=== PATIENT | female | born 1995 | race African-American/Black ===

== ENCOUNTER 2017-05-16 12:26 | Emergency (ER) | payer BC, SELFPAY ==
[2017-05-16 13:04] LABS: Bilirubin Negative (Negative); Blood, Urine Small (Negative); Clarity Hazy (Clear); Glucose, Urine (Dipstick) Negative (Negative); Leukocyte Negative (Negative); Nitrite Negative (Negative); Protein, Urine (Dipstick) 30 mg/dL (Neg-Trace); Specific Gravity, Urine 1.015 (1.005-1.030); pH, Urine 6.5 (5.0-9.0)
[2017-05-16 13:07] LABS: Bacteria/HPF 1+ HPF (None Seen); WBC/HPF 0-3 HPF (0-3)
[2017-05-16] MEDS ORDERED: Ondansetron ODT 4 MG TAB ONE (13:08)
== END 2017-05-16 13:30 | disposition home or self-care (01) ==
LOC: MADERS 12:26
DX: R42 Dizziness and giddiness (principal); R11.0 Nausea
CPT/HCPCS: 81003; 81015; 99284; Q0162

== ENCOUNTER 2017-05-27 15:40 | Emergency (ER) | payer BC ==
[~2017-05-27 15:40] MED LIST: Sodium Chloride 0.9% 1,000 ML BAG ONE; Sodium Chloride 0.9% 100 ML BAG ONE; Sodium Chloride 0.9% 500 ML BAG ONE
[2017-05-27] MEDS ORDERED: Ondansetron HCl/PF 4 MG/2 ML Vial ONE (15:57)
[2017-05-27 17:11] LABS: INR-International Normal Ratio 1.1; PTT 32.5 SEC (22.9-36.1); Prothrombin Time 14.6 SEC (12.0-14.7)
[2017-05-27 17:21] LABS: ALT (SGPT) 37 U/L (8-55); AST (SGOT) 210 U/L (5-34); Albumin 4.2 g/dL (3.5-5.0); Alkaline Phosphatase 38 U/L (40-150); Anion Gap 15 mmol/L (10-20); BUN (Urea Nitrogen) 8 mg/dL (7.0-18.7); Bilirubin, Total 1.7 mg/dL (0.2-1.2); Calc. Creatinine Clearance 0 mL/min (70-130); Calcium 9.6 mg/dL (7.8-10.44); Carbon Dioxide 22 mmol/L (22-29); Chloride 106 mmol/L (98-107); Estimated GFR-MDRD Greater than 90; Globulin 3.4 g/dL (2.4-3.5); Glucose 79 mg/dL (70-105); Potassium 3.8 mmol/L (3.5-5.1); Protein, Total 7.6 g/dL (6.0-8.3); Sodium 139 mmol/L (136-145)
[2017-05-27 17:25] LABS: #Lymphocytes 1.6 thou/uL (1.20-3.40); #Monocytes 0.1 thou/uL (0.11-0.59); %Basophils 0.8 % (0.0-1.0); %Eosinophils 0.2 % (0.0-10.0); %Lymphocytes 43.1 % (21.0-51.0); %Monocytes 2.8 % (0.0-10.0); %Neutrophils 53.1 % (42.0-75.0); Anisocytosis MARKED = >30 cells (100X) (0-5/hpf); Hemoglobin 3.6 g/dL (12.0-16.0); Hypochromia MODERATE=16-30 cells (100X) (0-5/hpf); MDiff Complete? YES; Macrocytosis MODERATE=16-30 cells (100X) (0-5/hpf); Mean Corpuscular Hemoglobin 38.3 pg (27.0-31.0); Mean Corpuscular Volume 109.4 fl (81.0-99.0); Mean Platelet Volume 9.5 fL (7.4-10.4); PLT Morphology Comment Appears Decreased; Platelet Count 84 thou/uL (130-400); Poikilocytosis MODERATE=16-30 cells (100X) (0-5/hpf); Polychromasia MODERATE = 3-4 cells (100X) (0-2/hpf); RBC Distribution Width 26.1 % (11.5-14.5); Red Blood Cell (RBC) Count 0.95 mill/uL (4.20-5.40); White Blood Cell (WBC) Count 3.7 thou/uL (4.8-10.8)
[2017-05-27 17:43] LABS: Bilirubin Negative (Negative); Blood, Urine Small (Negative); Clarity Clear (Clear); Glucose, Urine (Dipstick) Negative (Negative); Leukocyte Trace (Negative); Nitrite Negative (Negative); Protein, Urine (Dipstick) 30 mg/dL (Neg-Trace); Specific Gravity, Urine 1.015 (1.005-1.030); pH, Urine 8.5 (5.0-9.0)
[2017-05-27 17:45] LABS: RBC/HPF 0-3 HPF (0-3)
[2017-05-27 17:46] LABS: Bacteria/HPF 1+ HPF (None Seen); Crystals/HPF 1+ AMORPH PHOS HPF (Negative); Squamous Epithelial 0-3 HPF (0-3); WBC/HPF 0-3 HPF (0-3)
[2017-05-27 17:47] LABS: Pregnancy Test - Urine (BHCG) Negative (Negative); Pregu Control Background? CLEAR/WHITE (CLR/WHITE); Pregu Control Bar Appear? YES (CONTROL BAR); Specific Gravity 1.015 (1.002-1.036)
[2017-05-27 17:52] LABS: Amphetamine Not Detected (NotDetected); Barbiturates Screen Not Detected (NotDetected); Benzodiazepine Screen Not Detected (NotDetected); Cocaine Metabolite Screen Not Detected (NotDetected); Medtox Control Line Valid? VALID (VALID); Methadone Not Detected (NotDetected); Methamphetamine Not Detected (NotDetected); Opiate Screen Not Detected (NotDetected); Oxycodone Screen Not Detected (NotDetected); Phencyclidine (PCP) Not Detected (NotDetected); THC/Cannabinoid Screen Not Detected (NotDetected); Tricyclic Screen Not Detected (NotDetected)
[2017-05-27] MEDS ORDERED: cefTRIAXone\\ROCEPHIN 1 GM VIAL ONE (17:57)
== END 2017-05-27 19:08 | disposition short-term general hospital (02) ==
LOC: MADERS 15:40
DX: D61.818 Other pancytopenia (principal)
CPT/HCPCS: 36430; 80053; 80306; 81003; 81015; 81025; 82274; 85025; 85060; 85610; 85730; 86850; 86900; 86901; 87086; 93005; 94760; 96361; 96374; 96375; J0696; J2405; J7050; P9016

== ENCOUNTER 2018-12-10 14:58 | Emergency (ER) | payer OTHER ==
[2018-12-10] MEDS ORDERED: Ketorolac Tromethamine 30 MG/ML VIAL ONE (15:35)
--- NOTE | 2018-12-10 15:49 | RAD ---
EXAM: Two views chest PROVIDED CLINICAL HISTORY: None COMPARISON: None FINDINGS: Cardiac silhouette and pulmonary vasculature are within normal limits. Nodular density overlies the right lung base most likely representing a nipple shadow. The lungs are otherwise clear. The osseous structures have a normal appearance. IMPRESSION: No acute cardiopulmonary process.
--- NOTE | 2018-12-10 16:26 | RAD ---
RIGHT KNEE: 12/10/18 Four views. HISTORY: Injury. No evidence of fracture. No evidence of joint effusion. IMPRESSION: No acute findings. POS: [facility]
== END 2018-12-10 15:26 | disposition home or self-care (01) ==
LOC: MADERS 14:58
DX: S13.4XXA Sprain of ligaments of cervical spine, initial encounter (principal); T14.8XXA Other injury of unspecified body region, initial encounter; V49.9XXA Car occupant (driver) (passenger) injured in unspecified traffic accident, initial encounter
CPT/HCPCS: 71046; 96372; J1885

== ENCOUNTER 2019-01-03 12:03 | Outpatient (CLI) | payer OTHER ==
--- NOTE | 2019-01-03 12:31 | RAD ---
THORACIC SPINE 2 VIEWS: HISTORY: Acute right-sided back pain FINDINGS: No fracture, subluxation or bony destruction is identified.
--- NOTE | 2019-01-03 12:32 | RAD ---
CERVICAL SPINE 5 VIEWS: HISTORY: Acute neck pain FINDINGS: No fracture, subluxation or bony destruction is identified.
== END 2019-01-03 12:04 | disposition home or self-care (01) ==
LOC: MADRAD 12:03
PROVIDERS: ATTEND Family Medicine
DX: M54.2 Cervicalgia (principal); M54.6 Pain in thoracic spine
CPT/HCPCS: 72050; 72070

== ENCOUNTER 2022-02-13 16:16 | Outpatient (CLI) | payer OTHER ==
[2022-02-13 16:55] LABS: Anion Gap 14 mmol/L (10-20); BUN (Urea Nitrogen) 8 mg/dL (7.0-18.7); Calc. Creatinine Clearance 0 mL/min (70-130); Calcium 9.3 mg/dL (7.8-10.44); Carbon Dioxide 22 mmol/L (22-29); Chloride 111 mmol/L (98-107); Glucose 105 mg/dL (70-105); Potassium 3.5 mmol/L (3.5-5.1); Sodium 143 mmol/L (136-145); Uric Acid 3.9 mg/dL (2.6-6.0)
[2022-02-13 17:34] LABS: Anisocytosis SLIGHT = 6-15 cells (100X) (0-5/hpf); Hemoglobin 8.6 g/dL (12.0-16.0); Hypochromia SLIGHT = 6-15 cells (100X) (0-5/hpf); Lymphocytes 42 % (21-51); MDiff Complete? YES; Macrocytosis SLIGHT = 6-15 cells (100X) (0-5/hpf); Mean Corpuscular HGB CONC 29.8 g/dL (32.0-36.0); Mean Corpuscular Hemoglobin 30.8 pg (27.0-31.0); Mean Corpuscular Volume 103.6 fL (78.0-98.0); Mean Platelet Volume 8.1 fL (7.4-10.4); Monocytes 7 % (0-10); Neutrophil 51 % (42-75); Platelet Count 258 thou/uL (130-400); Platelet Morphology Comment Appears Adequate; RBC Distribution Width 24.1 % (11.5-14.5); Red Blood Cell (RBC) Count 2.79 mill/uL (4.20-5.40); White Blood Cell (WBC) Count 6.7 thou/uL (4.8-10.8)
== END 2022-02-13 16:17 | disposition home or self-care (01) ==
LOC: MADLAB 16:16
PROVIDERS: ATTEND Family Medicine
DX: M79.89 Other specified soft tissue disorders (principal)
CPT/HCPCS: 36415; 80048; 83520; 84550; 85025; 85652; 86200